=== PATIENT | female | born 1955 | race American Indian/Alaskan Native ===

== ENCOUNTER 2016-06-22 07:37 | Day surgery (SDC) | payer OTHER ==
[2016-06-22 08:52] VITALS: BMI 37.5
[2016-06-22] MEDS ORDERED: Pantoprazole 40 mg EC Tab PO STA (09:41)
--- NOTE | 2016-06-22 09:41 | CP.SDSHP ---
Same Day Surgery H & P - History Proposed Procedure: EGD Pre-Op Diagnosis: SEE NOTES - Previous Medical/Surgical History Cardiac: Hypertension Pulmonary: Asthma Endocrine/Metabolic: Thyroid Disease, Other Neuro: Backaches Misc: Other Pain: 4.Moderate Pain Previous Surgical History: S/P PACEMAKER INSERTION - Allergies Allergies: Allergies naproxen Allergy (Severe, Verified 06/22/16 08:50) HEADACHE NOT AN ALLERGY; CANNOT TAKE DUE TO H/O BRAIN ANEURYSM metronidazole Allergy (Mild, Verified 06/22/16 08:50) ITCHING Penicillins Allergy (Mild, Verified 06/22/16 08:50) ITCHING - Physical Exam General Appearance: N Vital Signs: Vital Signs 06/22/16 09:02 Temperature 97 F L Pulse Rate 78 Respiratory 9 L Rate Blood Pressure 121/64 O2 Sat by Pulse 99 Oximetry Mental Status: Alert & Oriented x3 Neuro: WNL Heart: Other Lungs: Other GI: Other - {Optional Preform as Required} Breast: WNL Abdomen: Other Rectal: Other Integument: WNL : WNL Ortho: Other ENT: WNL - Impression Pt. Evaluated Today:Candidate for Anesthesia & Procedure: Yes - Date & Time Time: 09:41 Short Stay Discharge - Short Stay Discharge Admitting Diagnosis/Reason for Visit: DYSPEPSIA Disposition: HOME/ ROUTINE
[2016-06-22] MEDS ORDERED: Propofol 10 mg/ml Inj (20 ML) ONE (09:45)
[2016-06-22] MEDS ORDERED: Lactated Ringer's 500 ML IV ONE ×2 (09:45)
[2016-06-22] MEDS ORDERED: Lidocaine Hydrochloride 5 ML INJ ONE (09:45)
[2016-06-22 11:47] VITALS: TEMP 97.1
[2016-06-22 11:51] VITALS: O2SAT 96
[2016-06-22 12:00] VITALS: BP 131/75; PULSE 65; RESP 18
== END 2016-06-22 11:22 | disposition home or self-care (01) ==
LOC: C.ENDO 07:37
PROVIDERS: ATTEND Specialist
DX: K20.9 Esophagitis, unspecified (principal); K29.70 Gastritis, unspecified, without bleeding; K44.9 Diaphragmatic hernia without obstruction or gangrene
CPT/HCPCS: 43239; 82948; 88305; 88342; J2704; J7120